=== PATIENT | female | born 1995 | race Caucasian/White ===

== ENCOUNTER 2017-03-29 06:52 | Emergency (ER) | payer OTHER ==
[~2017-03-29] VITALS: Ht 167.6 cm; Wt 75.0 kg
[~2017-03-29 06:52] MED LIST: DOXYCYCL HYC100 MG PO; LORTAB 5/3255 MG PO; METHERGINE0.2 MG PO
[2017-03-29] MEDS ORDERED: BACTRIM DS1 TAB PO (07:37)
[2017-03-29 07:47] VITALS: BP 122/70
== END 2017-03-29 07:47 | disposition home or self-care (01) | DRG 603 ==
LOC: ED 06:52
DX: L02.415 Cutaneous abscess of right lower limb (principal)

== ENCOUNTER 2018-09-17 01:51 | Emergency (ER) | payer OTHER ==
[~2018-09-17] VITALS: Ht 170.2 cm; Wt 63.6 kg
[~2018-09-17 01:51] MED LIST changes: +BACTRIM DS1 TAB PO
[2018-09-17 02:41] LABS: IMMATURE GRANULOCYTES 0.4 % (0.0-5.0); MEAN CELL VOLUME 89.4 fL CALC (80.0-100.0); MEAN CORPUSCULAR HGB 29.2 pG CALC (26.0-32.0); MEAN CORPUSCULAR HGB CONC 32.7 g/L CALC (32.0-36.0); NEUT# 4.28 thou/uL (2.00-7.15); RED BLOOD COUNT 4.72 mill/uL (4.20-5.60); RED CELL DISTRI WIDTH 13.1 % (11.5-15.5)
[2018-09-17 02:43] LABS: HEMOGLOBIN 13.8 g/dl (12.0-16.0)
[2018-09-17 02:44] LABS: HEMATOCRIT 42.2 % (37.0-47.0)
[2018-09-17 02:47] LABS: ALKALINE PHOSPHATASE 65 u/l (38-126); AMYLASE 51 u/l (30-110); BILIRUBIN, TOTAL 0.2 mg/dL (0.0-1.4); BUN 6 mg/dL (7-17); BUN/CREATININE RATIO 12 (12-20 (CALC)); CHLORIDE 109 mmol/l (95-108); CREATININE 0.5 mg/dL (0.5-1.0); GFR > 60 ML/MIN (>=60 (CALC)); GFR FOR AFR.AMER. > 60 ML/MIN (>=60 (CALC)); LIPASE 46 u/l (23-300); POTASSIUM 3.6 mmol/l (3.5-5.1); SGOT/AST 17 u/l (14-36); SODIUM 141 mmol/l (137-146); TOTAL PROTEIN 6.6 g/dL (6.3-8.2)
[2018-09-17 02:50] LABS: ALBUMIN 4.1 g/dL (3.2-5.0); ANION GAP 16 (6-22 (CALC)); CARBON DIOXIDE 20 mmol/l (22-30)
[2018-09-17 04:30] LABS: URINE BILIRUBIN - DIPSTICK NEGATIVE (NEGATIVE); URINE BLOOD DIPSTICK NEGATIVE (NEGATIVE); URINE COLOR YELLOW; URINE GLUCOSE - DIPSTICK NEGATIVE (NEGATIVE); URINE KETONE NEGATIVE (NEGATIVE); URINE LEUK ESTERASE NEGATIVE (NEGATIVE); URINE NITRITE - DIPSTICK NEGATIVE (Negative); URINE PH 6.5 (4.5-8.0); URINE PROTEIN - DIPSTICK NEGATIVE (NEG-TRACE); URINE UROBILINOGEN - DIPSTICK 0.2 E.U./dL (0.2)
[2018-09-17 04:35] LABS: BARBITURATES NEGATIVE (NEGATIVE); COCAINE POSITIVE (NEGATIVE); METHADONE NEGATIVE (NEGATIVE); OXCYCODONE NEGATIVE (NEGATIVE); TETRAHYDROCANNABIONOL NEGATIVE (NEGATIVE); TRICYLIC ANTIDEPRESSANTS NEGATIVE (NEGATIVE)
[2018-09-17 04:42] LABS: URINE BACTERIA FEW hpf; URINE RBC 0-2 RBC/hpf (0-5); URINE SQUAMOUS EPITHELIAL CELL FEW EPI/hpf (0-FEW); URINE WBC 0-2 WBC/hpf (0-5)
[2018-09-17] MEDS ORDERED: PREVACID30 M3 PO (04:43)
[2018-09-17 04:46] VITALS: BP 101/78
== END 2018-09-17 05:45 | disposition home or self-care (01) ==
LOC: ED 01:51
PROVIDERS: Emergency Medicine
DX: K29.70 Gastritis, unspecified, without bleeding (principal); F10.10 Alcohol abuse, uncomplicated; F19.10 Other psychoactive substance abuse, uncomplicated; R11.2 Nausea with vomiting, unspecified; R10.13 Epigastric pain
CPT/HCPCS: S0164

== ENCOUNTER 2018-10-25 02:17 | Emergency (ER) | payer OTHER ==
[~2018-10-25] VITALS: Ht 170.2 cm; Wt 65.2 kg
[~2018-10-25 02:17] MED LIST changes: +PREVACID30 M3 PO
[2018-10-25 02:19] VITALS: BP 135/91
[2018-10-25] MEDS ORDERED: TRAMADOL HCL50 MG PO (02:43)
[2018-10-25] MEDS ORDERED: AMOXICILLIN500 MG PO (02:43)
[2018-10-25] MEDS ORDERED: MOTRIN800 MG PO (02:43)
== END 2018-10-25 02:59 | disposition home or self-care (01) ==
LOC: ED 02:17
DX: K04.7 Periapical abscess without sinus (principal); F17.200 Nicotine dependence, unspecified, uncomplicated; K08.89 Other specified disorders of teeth and supporting structures; R22.0 Localized swelling, mass and lump, head

== ENCOUNTER 2020-02-23 03:49 | Emergency (ER) | payer OTHER ==
[~2020-02-23] VITALS: Ht 172.7 cm; Wt 75.9 kg
[~2020-02-23 03:49] MED LIST changes: +AMOXICILLIN500 MG PO; +MOTRIN800 MG PO; +TRAMADOL HCL50 MG PO
[2020-02-23] MEDS ORDERED: PRE-NATAL PO (04:08)
[2020-02-23 04:50] VITALS: BP 126/64
== END 2020-02-23 04:53 | disposition home or self-care (01) ==
LOC: ED 03:49
DX: S61.210A Laceration without foreign body of right index finger without damage to nail, initial encounter (principal); O99.330 Smoking (tobacco) complicating pregnancy, unspecified trimester; F17.210 Nicotine dependence, cigarettes, uncomplicated; W25.XXXA Contact with sharp glass, initial encounter; Y92.009 Unspecified place in unspecified non-institutional (private) residence as the place of occurrence of the external cause; Z3A.00 Weeks of gestation of pregnancy not specified

== ENCOUNTER 2023-05-20 19:29 | Emergency (ER) | payer OTHER ==
[~2023-05-20] VITALS: Ht 172.7 cm; Wt 67.0 kg
[~2023-05-20 19:29] MED LIST changes: +PRE-NATAL PO
[2023-05-20] MEDS ORDERED: NAPROXEN500 MG PO (19:50)
[2023-05-20] MEDS ORDERED: PENICILLN VK500 MG PO (19:50)
[2023-05-20 20:00] VITALS: BP 144/101
[2023-05-20 20:16] VITALS: BP 144/101
== END 2023-05-20 20:16 | disposition home or self-care (01) ==
LOC: ED 19:29
DX: K04.7 Periapical abscess without sinus (principal); K02.9 Dental caries, unspecified; K08.439 Partial loss of teeth due to caries, unspecified class; F17.200 Nicotine dependence, unspecified, uncomplicated; S02.5XXA Fracture of tooth (traumatic), initial encounter for closed fracture; X58.XXXA Exposure to other specified factors, initial encounter